=== PATIENT | male | born 1950 | race Caucasian/White ===

== ENCOUNTER 2019-04-11 07:00 | Outpatient (CLI) | payer OTHER, SELFPAY ==
[2019-04-11 12:40] LABS: Hemoglobin A1C 6.2 % (3.8-5.6)
[2019-04-11 12:59] LABS: Anion Gap 9.7 mmol/L (3-11); BUN 18 mg/dL (7-18); CO2 28.3 mmol/L (21.0-32.0); CREATININE 1.04 mg/dL (0.70-1.30); Calcium 9.2 mg/dL (8.5-10.1); Calculated LDL 77 mg/dL; Chloride 104 mmol/L (98-107); Cholesterol 172 mg/dL (<200); Glucose 134 mg/dL (74-106); HDL Cholesterol 52 mg/dL (40-60); Potassium 4.1 mmol/L (3.5-5.1); Sodium 142 mmol/L (136-145); Triglyceride 215 mg/dL (<150)
[2019-04-14 11:37] LABS: PSA, Screening 1.5 ng/mL (0.0-4.5)
== END 2019-04-11 07:20 ==
PROVIDERS: PCP Emergency Medicine; Visit Provider Emergency Medicine
DX: I10 Essential (primary) hypertension (principal); E11.9 Type 2 diabetes mellitus without complications; Z12.5 Encounter for screening for malignant neoplasm of prostate
CPT/HCPCS: 36415; 80048; 80061; 84153; 83036

== ENCOUNTER 2019-05-19 11:52 | Outpatient (CLI) | payer OTHER, SELFPAY ==
--- NOTE | 2019-05-19 09:52 | DI.RAD_ITS ---
EXAM: XR HIP LT COMPLETE AP PELVIS INDICATION: eval L hip pain and restricted motion. COMPARISON: No exams were available for comparison TECHNIQUE: 2D digital imaging was performed. FINDINGS: At the left hip joint, there is mild joint space narrowing, subchondral sclerosis, and periarticular spurring. The bones are intact. No dislocation is present. Dystrophic calcifications are seen in t he soft tissues. The sacroiliac joints and symphysis pubis are intact. IMPRESSION: Mild degenerative changes of the left hip.
== END 2019-05-19 12:12 ==
PROVIDERS: PCP Emergency Medicine; Visit Provider Student in an Organized Health Care Education/Training Program
DX: M25.552 Pain in left hip (principal); M25.652 Stiffness of left hip, not elsewhere classified; M16.12 Unilateral primary osteoarthritis, left hip
CPT/HCPCS: 73502

== ENCOUNTER → 2020-02-16 02:20 | Outpatient (CLI) | payer OTHER, MEDICARE, SELFPAY ==
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
== END ==
PROVIDERS: PCP Emergency Medicine; Visit Provider Nurse Practitioner Family
DX: S09.8XXA Other specified injuries of head, initial encounter (principal); M47.812 Spondylosis without myelopathy or radiculopathy, cervical region
CPT/HCPCS: 70450; 72125

== ENCOUNTER 2020-10-08 11:56 | Outpatient (REF) | payer OTHER, MEDICARE, SELFPAY ==
[2020-10-08 13:36] LABS: Anion Gap 10.8 mmol/L (3-11); BUN 16 mg/dL (7-18); CO2 27.2 mmol/L (21.0-32.0); CREATININE 1.1 mg/dL (0.70-1.30); Calcium 9.1 mg/dL (8.5-10.1); Calculated LDL 93 mg/dL (<100); Chloride 102 mmol/L (98-107); Cholesterol 186 mg/dL (<200); Glucose 162 mg/dL (74-106); HDL Cholesterol 60 mg/dL (40-60); Hemoglobin A1C 6.5 % (<5.7); Potassium 3.9 mmol/L (3.5-5.1); Sodium 140 mmol/L (136-145); Triglyceride 169 mg/dL (<150)
== END 2020-10-08 11:57 | disposition home or self-care (01) ==
LOC: LBN 11:56
PROVIDERS: PCP Emergency Medicine; Visit Provider Emergency Medicine
DX: I10 Essential (primary) hypertension (principal); E11.9 Type 2 diabetes mellitus without complications
CPT/HCPCS: 80048; 80061; 83036

== ENCOUNTER 2022-01-04 03:31 | Outpatient (CLI) | payer MEDICARE, SELFPAY ==
[2022-01-04 13:58] LABS: CREATININE 1.2 mg/dL (0.70-1.30); Estimated GFR 65.46 (mL/min/1.73m2); Potassium 3.9 mmol/L (3.5-5.1)
== END 2022-01-04 03:32 | disposition home or self-care (01) ==
LOC: LBO 03:31
PROVIDERS: PCP Nurse Practitioner Family; Visit Provider Nurse Practitioner Family
DX: I10 Essential (primary) hypertension (principal)
CPT/HCPCS: 36415; 82565; 84132

== ENCOUNTER → 2022-02-03 01:05 | Outpatient (CLI) | payer MEDICARE, SELFPAY ==
--- OUTSIDE RECORDS SUMMARY | 2022-02-03 01:07 | XMS_ITS | Encounter Summary ---
:1950 Author Organization [facility] [place] [address] Care Team Providers Name Role Phone Issac Donahue DO Primary Care Provider Encounter Details Date Type Department Care Team Description 12/30/2019 Telephone Dermatology at [facility] Deirdre Du MD [address] [place] [address] [facility] [phone] [place], [place] [address] (Wo rk) Social History Tobacco Use Types Packs/Day Years Used Date Never Smoker Smokeless Tobacco: Never Used Alcohol Use Standard Drinks/Week Comments No 0 (1 standard drink = 0.6 oz pure alcoho l) Sex Assigned at Date Recorded Not on file documented as of this encounter Plan of Treatment Upcoming Encounters Date Type Specialty Care Team Description 02/15/2022 Office Visit Dermatology Armaan Jones MD [facility] [address] G[facility] GARCIA-DERMAT [place], [place] [address] (Wo rk) documented as of this encounter Visit Diagnoses Not on filedocumented in this encounter Care Teams Service Department Manager Relationship Specialty Start Date End Date Issac Donahue DO PCP - General 02/06/[address] [place], [place] [id number] (work) documented as of this encounter
--- OUTSIDE RECORDS SUMMARY | 2022-02-03 01:07 | XMS_ITS | Encounter Summary ---
:1950 Author Organization [facility] [place] [address] Care Team Providers Name Role Phone GodfreyIssac villalobos Primary Care Provider Encounter Details Date Type Department Care Team Description 04/18/2018 Telephone Dermatology at [facility] Sarah Wesley MD [address] [facility] [place] [address] [facility] [phone] [place], [place] [address] (Wo rk) Social History Tobacco Use Types Packs/Day Years Used Date Never Smoker Smokeless Tobacco: Never Used Alcohol Use Standard Drinks/Week Comments No 0 (1 standard drink = 0.6 oz pure alcoho l) Sex Assigned at Date Recorded Not on file documented as of this encounter Miscellaneous Notes Telephone Encounter - Leila Hudson CCMA - 04/19/2018 3:32 PM EST Patient called back asking for further clarification of ED&C procedure. Reviewed procedure in detail. Answered his questions. Scheduled for ED&C on 04/22/[address] Du. Telephone Encounter - Sarah Wesley - 04/18/2018 6:11 PM EST Patient called to discuss recent biopsy results. Had been on the phone with Dr. Deirdre Du earlierin the day but lost secretary receptionist before finishing their discussion. 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 Discussed need for treatment and Dr. Du's recommendation for ED&C (per instructions left with Leila Hudson [facility]). All questions were answered. The patient agrees to treatment and would like to schedule ED&C as soon as possible. documented in this encounter Plan of Treatment Upcoming Encounters Date Type Specialty Care Team Description 02/15/2022 Office Visit Dermatology Armaan Jones MD [facility] ER DR GONZALEZ GARCIA-DERMAT [place], [place] [address] (Wo rk) documented as of this encounter Visit Diagnoses Not on filedocumented in this encounter Care Teams Online Advertising Analyst Relationship Specialty Start Date End Date Issac Donahue DO PCP - General 02/06/[address] [place] [address] documented as of this encounter
--- OUTSIDE RECORDS SUMMARY | 2022-02-03 01:07 | XMS_ITS | Encounter Summary ---
:1950 Author Organization [facility] [place] [address] Care Team Providers Name Role Phone Issac Donahue DO Primary Care Provider Reason for Visit Reason Onset Date Comments Referral 02/10/2014 Encounter Details Date Type Department Care Team Description 02/10/2014 Telephone [place] [facility] [place] [address] Social History Tobacco Use Types Packs/Day Years Used Date Never Smoker Smokeless Tobacco: Never Used Alcohol Use Standard Drinks/Week Comments No 0 (1 standard drink = 0.6 oz pure alcoho l) Sex Assigned at Date Recorded Not on file documented as of this encounter Miscellaneous Notes Telephone Encounter - Nata Olivia - 02/17/2014 7:39 AM EST Letter sent 02/17/14 Telephone Encounter - Nata Olivia - 02/13/2014 3:35 PM EDT LM to call back and set up referral. Telephone Encounter - Anita Lu - 02/10/2014 2:22 PM EDT .I left a message for patient to call about scheduling their referral. documented in this encounter Plan of Treatment Upcoming Encounters Date Type Specialty Care Team Description 02/15/2022 Office Visit Dermatology Armaan Jones MD [facility] ER [address] [facility] GARCIA[facility]DERMAT [place], [place] [address] (Wo rk) documented as of this encounter Visit Diagnoses Not on filedocumented in this encounter Care Teams Concrete Block Plant Supervisor Relationship Specialty Start Date End Date Issac Donahue DO PCP - General 02/06/[address] [place] [address] documented as of this encounter
--- OUTSIDE RECORDS SUMMARY | 2022-02-03 01:07 | XMS_ITS | Encounter Summary ---
:1950 Author Organization [facility] [place] [address] Care Team Providers Name Role Phone GodfreyIssac villalobos Primary Care Provider Encounter Details Date Type Department Care Team Description 02/27/2011 Orders Only Orthopaedics at [facility] Tam Hernadez, Hand pain (Primary [facility] MD [place]x) [place] [address] ORTHOPAEDIC SURGERY [place], [place] [address] Social History Tobacco Use Types Packs/Day Years Used Date Never Smoker Smokeless Tobacco: Never Used Alcohol Use Standard Drinks/Week Comments No 0 (1 standard drink = 0.6 oz pure alcoho l) Sex Assigned at Date Recorded Not on file documented as of this encounter Plan of Treatment Upcoming Encounters Date Type Specialty Care Team Description 02/15/2022 Office Visit Dermatology Armaan Jones MD [facility] ER DR [facility] [facility]ARCIA[facility]DERMAT [place], [place] [address] (Wo rk) documented as of this encounter Results XR hand diagnostic minimum 3 views (04/24/2011 8:43 AM EST) Anatomical Region Laterality Modality Hand N/A Radiographic Imaging Specimen (Source) Anatomical Collection Method Collection Time Re ceived Time Location / / Volume Laterality 04/24/2011 8:43 AM EST Narrative 04/24/2011 12:54 PM EST THREE VIEWS RIGHT HAND: HISTORY: ??Dupuytren's contracture right hand, fourth and fifth. FINDINGS: ??PIP narrowing in the fourth and fifth fingers. The DIPs are also slightly narrowed with hypertrophic cristobal ges. There is normal mineralization. The hand and wrist are normal. Procedure Note Jay Jaimes MD - 04/24/2011Formatt ing of this note might be different from the original. THREE VIEWS RIGHT HAND: HISTORY: Dupuytren's contracture right h and, fourth and fifth. FINDINGS: PIP narrowing in the fourth an d fifth fingers. The DIPs are also slightly narrowed with hypertrophic cristobal ges. There is normal mineralization. The hand and wrist are normal. Tam Hernadez MD IMG DX ORDERABLES documented in this encounter Visit Diagnoses Diagnosis Hand pain - Primary Pain in limb Hand pain Pain in limb documented in this encounter Care Teams Evaluation Engineer Relationship Specialty Start Date End Date Issac Donahue DO PCP - General 02/06/[address] [place] [address] documented as of this encounter
--- OUTSIDE RECORDS SUMMARY | 2022-02-03 01:07 | XMS_ITS | Encounter Summary ---
:1950 Author Organization [facility] [place] [address] Care Team Providers Name Role Phone Issac Donahue DO Primary Care Provider Reason for Visit Reason Comments Skin Lesion Consultation (CALLIE) - Closed Specialty Diagnoses / Procedures Referred By Contact Refer red To Contact Dermatology Diagnoses ear lesion ? invasive Issac Donahue DO [facility] [address] [place], [place] [address] [place] [address] Fax: Referral ID Status Reason Start Date Expiration Date Visits V isits Requested Authorized [id number] Closed Consult, 09/28/2015 09/27/2016 1 1 [facility] Encounter Details Date Type Department Care Team Description 10/14/2015 Office Visit Dermatology at [facility] Darryn Lange (actinic Road MD Gaurav keratosis) [address] [place] [address] [facility] [place], [place] [address] Social History Tobacco Use Types Packs/Day Years Used Date Never Smoker Smokeless Tobacco: Never Used Alcohol Use Standard Drinks/Week Comments No 0 (1 standard drink = 0.6 oz pure alcoho l) Sex Assigned at Date Recorded Not on file documented as of this encounter Progress Notes Darryn Lange MD - 10/14/2015 10:05 AM EDT DERMATOLOGY NEW PATIENT CLINIC NOTE Date of service: 10/14/2015 Name: Aisa Villarreal Jr. Age: 65 y.o. Sex: male : 1950 Provider: Darryn Lange MD New patient to myself and to clinic. Seen in consultation at the request of Issac Donahue DO - PCP for evaluation and management of the below problem. HPI Asia Villarreal Jr. is a 65 y.o. year old male, here today for a concerning lesion on the right antihelix, present for about a year. Asymptomatic, no bleeding on its own, no tenderness/pain, no itch. HxAKs, but no hx skin cancer. No personal or FH dysplastic nevi or melanoma. Leaving in 10 days for multi-state motorcycle tour over the following 4-6 weeks. SKIN HX: Per patient: Multiple lesions frozen - possible AKs. FAMILY SKIN HISTORY: Family history of any skin cancers. - Sister - BCC No known family history of any skin conditions. SOCIAL HX; Occupation: Construction ADR: Allergies Allergen Reactions ??? Amoxicillin Trihydrate Nausea And Vomiting MEDS: Current Outpatient Prescriptions Medication Sig Dispense Refill ??? aspirin 81 mg EC tablet Take 81 mg by mouth daily. ??? nitroGLYcerin (NITROSTAT) 0.[address] 0.4 mg under the tongue every 5 minutes as needed. ??? amlodipine (NORVASC) 10 mg tablet Take 10 mg by mouth daily. ??? atenolol (TENORMIN) 100 mg tablet Take 100 mg by mouth 2 times daily. ??? losartan-hydrochlorothiazide (HYZAAR) 100-25 mg per tablet 1 Tablet(s), PO, Once daily ??? multivitamin (THERAGRAN) tablet ??? magnesium chloride (MAG DELAY) 64 mg CR tablet ??? atorvastatin (LIPITOR) 40 mg tablet No current facility-administered medications for this visit. ROS General: feeling well Skin: denies other skin complaints EXAM General: NAD, pleasant, cooperative Skin: A focused skin exam was performed of the right ear. Significant skin findings: A. AK on right antihelix (lesion of concern) ASSESSMENT/PLAN: A. Actinic keratosis - Discussed LN2 treatment. Will plan to treat when patient returns from vacation, rather than risk irritation from helmet. FOLLOW-UP: appointment scheduled for November upon leaving Note initiated by VANESA Martinez has performed the documentation for this encounter in the presence of and acting as a scribe for Dr. Lange. I performed the above scribed service and agree with the accuracy of thedocumentation in this encounter. Darryn Lange MD Section of Dermatology [facility] documented in this encounter Plan of Treatment Upcoming Encounters Date Type Specialty Care Team Description 02/15/2022 Office Visit Dermatology Armaan Jones MD [facility] [address]DER[address] [place], [place] [address] (Wo rk) documented as of this encounter Visit Diagnoses Diagnosis AK (actinic keratosis) Actinic keratosis documented in this encounter Care Teams Executive Legal Secretary Relationship Specialty Start Date End Date Issac Donahue DO PCP - General 02/06/[address] [place] [address] documented as of this encounter
--- OUTSIDE RECORDS SUMMARY | 2022-02-03 01:07 | XMS_ITS | Encounter Summary ---
:1950 [place] [address] Care Team Providers Name Role Phone GodfreyIssac villalobos Primary Care Provider Reason for Visit Reason Comments Skin Lesion Encounter Details Date Type Department Care Team Description 02/07/2021 Office Visit D[facility] at [facility] Edward Du MD Actinic keratoses [facility] [address] [place] [address] [facility] [phone] RD-DERMATOLOGY [place], [place] [address] (Wo rk) Social History Tobacco Use Types Packs/Day Years Used Date Never Smoker Smokeless Tobacco: Never Used Alcohol Use Standard Drinks/Week Comments No 0 (1 standard drink = 0.6 oz pure alcoho l) Sex Assigned at Date Recorded Not on file documented as of this encounter Patient Instructions Patient InstructionsLeila Hudson CCMA - 02/07/2021 10:15 AM EDT Actinic Keratoses Diagnosis: You have been diagnosed today with an actinic keratosis. These dry, scaly patches are considered theearliest stage in the development of skin cancer. A significant percentage of actinic keratoses develop into squamous cell carcinoma skin cancer; estimates range from 10-20% over a 10-year period. Because of this risk, actinic keratoses are usually treated. Treatment: You were treated today with liquid nitrogen. This is the most common treatment for actinic keratoses. Liquid nitrogen is extremely cold and freezes the surface of the skin, causing the lesion to flake off. This treatment can be uncomfortable but discomfort should subside after a couple of hours. The area treated will look red and irritated, and it may blister up or turn dark, then fall off. This is normal. Wound care: You do not need any special treatment for the area, but you may find cold compresses and/or a light application of Vaseline soothing. For best results, do not rub or pick at the healing lesion. Expected healing time is 3-4 weeks. Please contact the clinic if the lesion has not fully resolved after 6 weeks. Prevention: Long-term exposure to the sun is the single most significant cause of actinic keratoses, so the bestdefense against them is a comprehensive sun protection program. This includes wearing protective clothing and a wide-brimmed hat, avoiding the sun at midday when ultraviolet rays are strongest, stayingin the shade as much as possible, and wearing a broad-spectrum sunscreen with a sun protection factor (SPF) of at least 30. Contact information: On weekdays (8 am to 5 pm), please call the clinic at [phone]. After 5 pm, and on weekends and holidays, please call the hospital at [phone] and ask for the Drapery Rod Assembler Motor Adjuster. documented in this encounter Progress Notes Deirdre Du MD - 02/07/2021 10:15 AM EDT Images from the original note were not included. DEPARTMENT OF DERMATOLOGY Medical Dermatology Clinic Provider: DEIRDRE DU MD Patient's preferred name Asia Preferred contact method for results [x]Phone []myD-H []Letter Detailed phone message OK? Yes Are there any other people with whom we may discuss your care? (Ashly) Past Medical History Date, location, treatment Melanoma No Dysplastic nevi No SCC 04/17/18: Right posterior arm, SCCis (ED&C 04/22/18) BCC No AKs LN2 Other relevant past medical history Family History Details Melanoma No NMSC Sister - BCC Other relevant family history No Social History Occupation: Construction - builds [employer] Hobbies: Enjoys riding motorcycles Pre-Procedure Questions Details Allergy to lidocaine, epinephrine, Dermabond, chlorhexidine, or adhesives No Bleeding disorder or blood thinners Yes: ASA 81 mg Pacemaker, defibrillator, deep brain stimulator, cochlear implant No History of Present Illness: Asia Villarreal Jr. is a 70 y.o. established patient who returns to the clinic today for evaluation of various lesions. - Rough lesions on the hands, forearms, left orthodox, and scalp. Last visit at [facility] Derm: 02/23/2020 Last visit with this provider: 02/23/2020 Medications: Reviewed in eD-H Allergies: Reviewed in eD-H Skin Examination: Focused skin examination of the scalp, upper face, forearms, and hands was normal with the exceptionof the findings below. Assessment/Plan A. Actinic Keratoses - Ill-defined, gritty papules on the scalp x 1, left eyebrow x 1, left forearm x 1, left dorsal hand x 3, right dorsal hand x 1. - Explained premalignant potential of these lesions. - Discussed treatment with cryotherapy. Patient elects to proceed with cryotherapy today. - Instructed patient to return to clinic for re-evaluation if lesions does not resolve as expected with this treatment. Procedure: Destruction of lesions with cryotherapy (LN2). Locations: As noted above. Number: 7 Discussed procedure and expectations, including risks and benefits. Verbal consent obtained. Treatedwith LN2. There were no complications; Patient tolerated the procedure well. Post-procedure expectations and wound care reviewed. Other: ??? N/A RTC: PRN (patient has skin exams by PCP) Scribe attestation: Hafsa Hackett and [facility] Hudson [facility] have performed the documentation for this encounter in the presence of and acting as a scribe for DEIRDRE DU MD. I performed the above scribed service and agree with the accuracy of the documentation in this encounter. Reviewed and signed by: DEIRDRE DU MD Dermatology [facility] documented in this encounter Plan of Treatment Upcoming Encounters Date Type Specialty Care Team Description 02/15/2022 Office Visit Dermatology Armaan Jones MD [facility] [address] [facility] G[facility]-DERMAT [place], [place] [address] (Wo rk) documented as of this encounter Visit Diagnoses Diagnosis Actinic keratoses Actinic keratosis documented in this encounter Care Teams Field Recorder Relationship Specialty Start Date End Date Issac Donahue DO PCP - General 02/06/[address] [place] [address] documented as of this encounter
--- OUTSIDE RECORDS SUMMARY | 2022-02-03 01:07 | XMS_ITS | Clinical Summary ---
:1950 Author Organization [facility] [place] [address] Care Team Providers Name Role Phone Issac Donahue DO Primary Care Provider Allergies Active Allergy Reactions Severity Noted Date Comments Amoxicillin Trihydrate Nausea And Vomiting Medications Medication Sig Dispensed Refills Start Date End Date Status losartan-hydrochlorothi 1 Tablet(s), PO, 0 0 Active azide (HYZAAR) 100-25 Once daily mg per tablet multivitamin 0 09/30/2009 Active (THERAGRAN) tablet magnesium chloride (MAG 0 09/30/2009 Active DELAY) 64 mg CR tablet atorvastatin (LIPITOR) 0 09/30/2009 Active 40 mg tablet aspirin 81 mg EC tablet Take 81 mg by 0 Active mouth daily. nitroGLYcerin Place 0.4 mg 0 Act nilda (NITROSTAT) 0.4 mg SL under the tongue tablet every 5 minutes as needed. amlodipine (NORVASC) 10 Take 10 mg by 0 Active mg tablet mouth daily. atenolol (TENORMIN) 100 Take 100 mg by 0 Active mg tablet mouth 2 times daily. clonazePAM (KLONOPIN) Take 0.5 mg by 0 Active 0.5 mg Tablet mouth 2 times daily as needed for Anxiety. ibuprofen Take 800 mg by 0 Activ e (ADVIL;MOTRIN) 800 mg mouth 2 times Tablet daily. omeprazole (PRILOSEC) Take 40 mg by 0 Active 40 mg Capsule, Delayed mouth daily. Release(E.C.) Active Problems Problem Noted Date S/P TKR (total knee replacement) using ATB cement/Stab . Rot. Platform 02/05/2011 07/09/07 Overview: TOTAL KNEE ARTHROPLASTY /RIGHT/ANTIBIOTI C CEMENT/STAB.ROTATING PLATFORM DM (diabetes mellitus) 02/05/2011 HTN (hypertension) 02/05/2011 Immunizations Name Administration Dates Next Due Influenza Vaccine, Whole 03/20/2008 Influenza, Trivalent, Adjuvanted 02/05/2019 Td, adult 06/18/2003 Social History Tobacco Use Types Packs/Day Years Used Date Never Smoker Smokeless Tobacco: Never Used Alcohol Use Standard Drinks/Week Comments No 0 (1 standard drink = 0.6 oz pure alcoho l) Sex Assigned at Date Recorded Not on file Last Filed Vital Signs Vital Sign Reading Time Taken Comments Blood Pressure 144/77 04/24/2011 9:45 AM EST Pulse 61 04/24/2011 9:45 AM EST Temperature - - Respiratory Rate - - Oxygen Saturation - - Inhaled Oxygen Concentration - - Weight 103 kg (227 lb) 04/24/2011 9:41 AM EST Height 172.7 cm (5' 8) 04/24/2011 9:41 AM EST Body Mass Index 34.52 04/24/2011 9:41 AM EST Plan of Treatment Upcoming Encounters Date Type Specialty Care Team Description 02/15/2022 Office Visit Dermatology Armaan Jones MD [facility] [address] [facility] G[facility]DER[facility] [place], [place] [address] (Wo rk) Health Maintenance Due Date Last Done Comments Covid-19 Vaccine (#1) 1950 Pneumoccocal Vaccine: 65+ (1 - PCV) 1958 DM Creatinine yearly 1962 DM Hemoglobin A1c 1962 DM Opthalmology Exam 1962 DM Urine Microalbumin yearly 1962 Hepatitis C Screening 1970 Tdap adult 1971 Colonoscopy 1997 Zoster vaccine (1 of 2) 2002 Tetanus vaccine 06/17/2013 06/18/2003 Influenza (Flu) vaccine (1 of 1 - 12/15/2021 02/05/2019, Influenza standard series) Insurance Payer Benefit Plan / Subscriber ID Effective Dates Phone Addre ss Type Group CIGNA CIGNA PPO IND [id number] 2002-Present [phone] [address] [place] [id number] MEDICARE MEDICARE PART A [id number] 2019-Present [phone] [facility] [place] [id number] [phone] (Work) Advance Directives Documents on File Type Date Recorded Patient Bond Runner Explanati on Advance Directives and Living 11/16/2015 9:53 AM 7 .12.16 Will Care Teams Offshore Wind Operations Manager Relationship Specialty Start Date End Date Issac Donahue DO PCP - General 02/06/[address] [place] [address]
--- OUTSIDE RECORDS SUMMARY | 2022-02-03 01:07 | XMS_ITS | Encounter Summary ---
:1950 Author Organization [facility] [place] [address] Care Team Providers Name Role Phone Issac Donahue DO Primary Care Provider Reason for Referral Consultation (Routine) - Closed Specialty Diagnoses / Procedures Referred By Contact Refer red To Contact Neurology Diagnoses Hand numbness Nata Ratliff MD [facility] [place] [facility] 3c [facility] D [facility] [place] [address] [place] [address] Referral ID Status Reason Start Date Expiration Date Visits V isits Requested Authorized [id number] Closed Consult & 04/24/2011 10/21/2011 1 1 Test Reason for Visit Reason Comments Other NUMBNESS IN RT HAND. DUPUYTR EN'S CONTRACTURES RT HAND, FINGERS 4&5. Encounter Details Date Type Department Care Team Description 04/24/2011 Office Visit [place]ed[facility] [place] [facility] [place] Nikky Hernadez, Hand numbness [facility] (Primary Dx) [place] [address] [phone] ORTHOPAEDIC SURGERY [place], [place] [address] Social History Tobacco Use Types Packs/Day Years Used Date Never Smoker Smokeless Tobacco: Never Used Alcohol Use Standard Drinks/Week Comments No 0 (1 standard drink = 0.6 oz pure alcoho l) Sex Assigned at Date Recorded Not on file documented as of this encounter Last Filed Vital Signs Vital Sign Reading [...] Mass Index 34.52 04/24/2011 9:41 AM EST documented in this encounter Patient Instructions Patient InstructionsNata Ratliff MD - 04/24/2011 10:40 AM EST Electrodiagnostic studies with neurology Follow-up with Dr. Hernadez after studies completed documented in this encounter Progress Notes Nikky Hernadez MD - 05/01/2011 12:51 PM EST Addended by: NIKKY HERNADEZ on: 05/01/2011 Modules accepted: Level of Service Nata Ratliff MD - 04/24/2011 10:49 AM EST ATTENDING: Nikky Hernadez M.D. DATE: 04/24/2011 CHIEF COMPLAINT: Right hand numbness. HISTORY OF PRESENT ILLNESS: Mr. Villarreal is a 60-year-old man who presents today in clinic for evaluation of right hand numbness. This problem has been of greater than two years' duration. The patient was referred by Dr. Donahue and by Dr. Swain. The patient is a construction site manager. He spends a lot of time riding snowmobiles and a motorcycle. He is right handed. He experiences numbness in his right hand especially in the third, fourth, and fifth fingers, also extending to the second finger. This occurs after he has been gripping the handle of his motorcycle or snowmobile for an extended period of time. The numbness extends to the metacarpophalangeal joint. When this occurs, the patient stops and shakes his arm and the symptoms resolve. He did previously notice some symptoms at night, but has modified his sleeping position and this has resolved. He also notices symptoms if he is using a hammer repetitively throughout a workday. He has occasional similar symptoms on the left side. The patient reports a prior injury to his left hand at age of [age] years old and recalls no major injury of his right upper extremity. He did injure his elbow on the right upper extremity at one time when ice fishing and this occurrence was not in proximity to development of symptoms. The patient also reports nodules on his palm causing some limitation of motion of the metacarpophalangeal Joint; this is in the third and fourth digits. The patient has no other complaints and receives regular medical care. Medications list has been updated in [facility]. THE PATIENT REPORTS NO DRUG ALLERGIES. PAST MEDICAL HISTORY: High blood pressure approximately 30 years, high cholesterol approximately 30 years, and acid reflux for one year. PRIOR SURGERIES: Total knee replacement 07/09/2007. SOCIAL FACTORS: The patient is a nonsmoker, has never smoked. Drinks alcohol rarely. Is physically active in construction work and deer hunting. Education level is some college. FAMILY MEDICAL HISTORY: Diabetes, mother and sister. Cancer, mother. Heart problems; father, uncle, and sister. Arthritis, sister and father. High blood pressure, sister. No family history of Dupuytren's type lesions. PHYSICAL EXAMINATION: General: The patient is alert, appropriate, and in no apparent distress. Right Upper Extremity: Motor function intact to extensor pollicis longus, flexor pollicis longus, intrinsics, wrist flexion and extension, and geospatial extractor analysis. There is no weakness. There is moderate limitation of motion of wrist flexion and extension. There is 10 degrees limitation of extension of the metacarpophalangeal joint and digits three and four. Light touch sensation is intact in median, ulnar, and radial distributions. Froment sign is negative bilaterally. Wartenberg sign is negative bilaterally. Tinel's test of the elbow is negative on the right. Phalen's test negative bilaterally. There are Dupuytren's lesions on the palmar aspect associated with third and fourth digits. RADIOGRAPHS: Full series of the hand document some arthritis of the trapeziometacarpal joint. ASSESSMENT: A 60-year-old right-handed man with symptoms compatible with compression of the right ulnar nerve. PLAN: The patient has been scheduled for electrodiagnostic studies; to return in clinic for discussion following electrodiagnostics. Cc. ISSAC DONAHUE DO I examined Asia Villarreal Jr. and I agree with Dr. Ratliff's note. NIKKY HERNADEZ MD documented in this encounter Miscellaneous Notes Miscellaneous - Steve, Synthetic Cloth Binding Cutter - 05/01/2011 5:45 PM EST documented in this encounter Plan of Treatment Upcoming Encounters Date Type Specialty Care Team Description 02/15/2022 Office Visit Dermatology Armaan Jones MD [facility] DR GONZALE[address] GARCIA[address]DER[address] [place], [place] [address] (Wo rk) Scheduled Referrals Name Type Priority Associated Diagnoses Order S chedule REFERRAL TO Outpatient Referral Routine Hand numbness Ordered : NEUROLOGY 04/24/2011 documented as of this encounter Visit Diagnoses Diagnosis Hand numbness - Primary Disturbance of skin sensation documented in this encounter Care Teams Entry Analyst Relationship Specialty Start Date End Date Issac Donahue DO PCP - General 02/06/[address] [place] [address] documented as of this encounter
--- OUTSIDE RECORDS SUMMARY | 2022-02-03 01:07 | XMS_ITS | Encounter Summary ---
:1950 Author Organization [facility] [place] [address] Care Team Providers Name Role Phone Godfrey Issac FOX Primary Care Provider Reason for Visit Reason Comments Procedure ED&C Skin Lesion Encounter Details Date Type Department Care Team Description 04/22/2018 [facility] Deirdre Schmidt, Sq uamous cell carcinoma; Jude TAYLOR AK (actinic keratosis) [address] [place] [address] [facility]-DERMATOLOGY [place], [place] [address] Social History Tobacco Use Types Packs/Day Years Used Date Never Smoker Smokeless Tobacco: Never Used Alcohol Use Standard Drinks/Week Comments No 0 (1 standard drink = 0.6 oz pure alcoho l) Sex Assigned at Date Recorded Not on file documented as of this encounter Patient Instructions Patient InstructionsLizzie Teresa M - 04/22/2018 8:15 AM EST Treatment and Wound Care Instructions Your treatment today: You have had an Electrodessication and Curretage (ED&C) of your skin, which is a method to destroy skin cancer. This wound will heal without stitches. Allow 3-6 weeks for the wound to fully heal. If bleeding occurs, hold firm pressure against the wound for 15 minutes. If bleeding continues, callthe clinic or go to your local emergency room. Wound care instructions: You will need to keep the bandage placed over the wound dry and intact for 24 hours. Afterwards, perform the following wound care daily: ?? Wash your hands before changing the bandage. ?? Remove the bandage and clean the area with mild soap and water, then gently pat the area dry. ?? Apply a small amount of Vaseline to the area, then cover the wound with a Band-Aid. Change your bandage daily until the wound is fully healed. ?? A small amount of yellow drainage is part of normal healing. The area might appear as a small depression with redness around the edge of the wound. This is normal. ?? Please contact the clinic if you notice any of the following signs of infection: increased tenderness, pain, drainage, or redness that becomes hot or hard around the wound. If you have further questions or concerns, please call the office at [phone]. If it is after 5PM, or a holiday or weekend, please call [phone] and ask for the Sociology Faculty Member Motors And Controls Tester. documented in this encounter Progress Notes Deirdre Du MD - 04/22/2018 8:15 AM EST DERMATOLOGY ESTABLISHED PATIENT CLINIC NOTE Date of service: 04/22/2018 Asia Villarreal Jr. : 1950 Provider: Deirdre Du MD Chief Complaint Patient presents with ??? Procedure ED&C ??? Skin Lesion SKIN HISTORY: 04/17/18: right posterior arm- SCCis Per patient: Multiple lesions frozen - possible AKs. ?? FAMILY SKIN HISTORY: - Sister - BCC ?? SOCIAL ??HISTORY: Occupation: Construction; builds [employer] HPI Asia Villarreal Jr. is a 67 y.o. year old male established patient last seen by me on 04/17/18. 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 Patient also concerned today about spot on the left lateral neck and left rastafari. ADR: Allergies Allergen Reactions ??? Amoxicillin Trihydrate Nausea And Vomiting MEDS: Current Outpatient Medications Medication Sig Dispense Refill ??? clonazePAM (KLONOPIN) 0.5 mg Tablet Take 0.5 mg by mouth 2 times daily as needed for Anxiety. ??? ibuprofen (ADVIL;MOTRIN) 800 mg Tablet Take 800 mg by mouth 2 times daily. ??? omeprazole (PRILOSEC) 40 mg Capsule, Delayed Release(E.C.) Take 40 mg by mouth daily. ??? aspirin 81 mg EC tablet Take [...] General: NAD, pleasant, cooperative Skin: A focused examination was performed to the right posterior arm, left neck, and left rastafari. Significant skin findings: A. Right posterior arm: 1.5cm well-demarcated, bright red, plaque with slight scale B. Left rastafari x 1, left lateral neck: 0.2-0.3cm scaly irregular pink papules [Total: 2] ASSESSMENT/PLAN: A. Biopsy-Proven SCCis - Reviewed pathology and ED&C procedure with patient. - [place] decision to proceed with ED&C treatment today. - Reviewed procedure screening questions listed above. Procedure: Destruction of lesion by electrodessication and curettage. Site: As noted above. Discussed indications and expectations including risks and benefits. Verbal consent obtained. Skin prepped. Local anesthesia with 1% xylocaine, 1/100,000 epinephrine. The entire lesion plus a small margin was treated. Post-curettage defect size: 1.8 cm. No complications. Wound dressed. Expectations (including discomfort management) and wound care reviewed. B. Actinic Keratosis -Discussed at length the natural history and etiology of actinic keratoses. -Discussed premalignant potential of these lesions. -Discussed treatment options for actinic keratoses including cryotherapy versus chemical treatment such as 5-FU or PDT. -Combined decision to treat actinic keratosis with LN2 in office today. Procedure Note: Procedure: Destruction of lesion(s) with cryotherapy. Number: 2 Location: as above Discussed procedure and expectations including risks (including risk of hypopigmentation) and benefits. Verbal consent obtained. Frozen with LN2, 15-30 second thaw time, TWICE. There were no complications; the patient tolerated the procedure well. Post-procedure expectations and wound care were reviewed. FOLLOW UP: RTC at convenience for follow-up and full skin exam, or sooner if needed. Patient will call to schedule. Reminder placed in the system to schedule. Patient instructed to call with any questions or concerns. I am documenting this encounter acting as the scribe for and in the presence of Dr. Du.: Teresa Samuel I performed the above scribed service and agree with the accuracy of the documentation in this encounter. Deirdre Du MD Section of Dermatology [facility] documented in this encounter Plan of Treatment Upcoming Encounters Date Type Specialty Care Team Description 02/15/2022 Office Visit Dermatology Armaan Jones MD [facility] [address] [place], [place] [address] (Wo rk) documented as of this encounter Visit Diagnoses Diagnosis Squamous cell carcinoma Other malignant neoplasm without specifi cation of site AK (actinic keratosis) Actinic keratosis documented in this encounter Care Teams Kids Club Attendant Relationship Specialty Start Date End Date Issac Donahue DO PCP - General 02/06/[address] [place] [address] documented as of this encounter
--- OUTSIDE RECORDS SUMMARY | 2022-02-03 01:07 | XMS_ITS | Encounter Summary ---
:1950 Author Organization [place] [address] Care Team Providers Name Role Phone Jesu Sue MD Primary Care Provider Encounter Details Date Type Department Care Team Description 10/28/2010 Orders Only Orthopaedics at [facility] [place] Gaston Swain, S/P TKR (total knee [facility] MD replacement) (Primary [facility] Dx) [place] [address] ORTHOPAEDIC SURGERY [place], [place] [address] Social History Tobacco Use Types Packs/Day Years Used Date Never Assessed Sex Assigned at Date Recorded Not on file documented as of this encounter Plan of Treatment Upcoming Encounters Date Type Specialty Care Team Description 02/15/2022 Office Visit Dermatology Armaan Jones MD [facility] ER DR [address] [place], [place] [address] (Wo rk) documented as of this encounter Results XR knee diagnostic 1 or 2 view (02/06/2011 7:23 AM EDT) Anatomical Region Laterality Modality Knee N/A Radiographic Imaging Specimen (Source) Anatomical Collection Method Collection Time Re ceived Time Location / / Volume Laterality 02/06/2011 7:23 AM EDT Impressions 02/06/2011 2:36 PM EDT IMPRESSION: Unchanged appearance and alignment of th e right total knee arthroplasty. Narrative 02/06/2011 2:36 PM EDT STANDING AP IMAGE OF BOTH KNEES AND LATE RAL VIEW OF THE RIGHT KNEE: COMPARISON STUDY: ??09/2009 and August 2007 . HISTORY: ??Arthroplasty followup. ?? FINDINGS: ??Right total knee arthroplast y without change in appearance and alignment, and no radiolucencies or alice prosthetic fracture. No effusion. Osteoarthritis of the left knee is simil ar to 2007 with diffuse joint space narrowing and osteophyte formation. Procedure Note Emelia Vallejo MD - 02/06/2011Formatt ing of this note might be different from the original. STANDING AP IMAGE OF BOTH KNEES AND LATE RAL VIEW OF THE RIGHT KNEE: COMPARISON STUDY: 09/2009 and August 2007. HISTORY: Arthroplasty followup. FINDINGS: Right total knee arthroplasty without change in appearance and alignment, and no radiolucencies or alice prosthetic fracture. No effusion. Osteoarthritis of the left knee is simil ar to 2008 with diffuse joint space narrowing and osteophyte formation. IMPRESSION IMPRESSION: Unchanged appearance and alignment of th e right total knee arthroplasty. Gaston Swain MD IMG DX ORDERABLES documented in this encounter Visit Diagnoses Diagnosis S/P TKR (total knee replacement) - Prima ry Knee joint replacement by other means S/P TKR (total knee replacement) Knee joint replacement by other means documented in this encounter Care Teams Teacher Learning Disabled Relationship Specialty Start Date End Date Jesu Sue MD PCP - General 03/08/10 02/05/[address] [address] documented as of this encounter
--- OUTSIDE RECORDS SUMMARY | 2022-02-03 01:07 | XMS_ITS | Encounter Summary ---
:1950 Author Organization [facility] [place] [address] Care Team Providers Name Role Phone Issac Donahue DO Primary Care Provider Encounter Details Date Type Department Care Team Description 04/24/2011 Hospital En[place] [facility] [address] [place] [address] [place] [address] Social History Tobacco Use Types Packs/Day Years Used Date Never Smoker Smokeless Tobacco: Never Used Alcohol Use Standard Drinks/Week Comments No 0 (1 standard drink = 0.6 oz pure alcoho l) Sex Assigned at Date Recorded Not on file documented as of this encounter Medications at Time of Discharge Medication Sig Dispensed Refills Start Date End Date aspirin 81 mg EC tablet Take 81 mg by mouth 0 daily. nitroGLYcerin (NITROSTAT) Place 0.4 mg under 0 0.4 mg SL tablet the tongue every 5 minutes as needed. amlodipine (NORVASC) 10 mg Take 10 mg by mouth 0 tablet daily. atenolol (TENORMIN) 100 mg Take 100 mg by mouth 0 tablet 2 times daily. losartan-hydrochlorothiazid 1 Tablet(s), PO, 0 e (HYZAAR) 100-25 mg per Once daily tablet multivitamin (THERAGRAN) 0 09/30/2009 tablet magnesium chloride (MAG 0 09/30/2009 DELAY) 64 mg CR tablet atorvastatin (LIPITOR) 40 0 09/30/2009 mg tablet documented as of this encounter Plan of Treatment Upcoming Encounters Date Type Specialty Care Team Description 02/15/2022 Office Visit Dermatology Armaan Jones MD [facility] [address] [place] [address] (Wo rk) documented as of this encounter Procedures Procedure Name Priority Date/Time Associated Comments Diagnosis XR HAND DIAGNOSTIC Routine 04/24/2011 8:43 AM Hand pain Res ults for this MINIMUM 3 VIEWS EST procedure ar e in the results section. documented in this encounter Results XR hand diagnostic minimum [...] this encounter Visit Diagnoses Diagnosis Hand pain Pain in limb documented in this encounter Care Teams Shell Core And Molding Supervisor Relationship Specialty Start Date End Date Issac Donahue DO PCP - General 02/06/[address] [place] [address] documented as of this encounter
--- OUTSIDE RECORDS SUMMARY | 2022-02-03 01:07 | XMS_ITS | Encounter Summary ---
:1950 Author Organization [facility] [place] [address] Care Team Providers Name Role Phone Godfrey Issac FOX Primary Care Provider Reason for Visit Reason Comments Skin Check Focused Exam Encounter Details Date Type Department Care Team Description 01/23/2019 Office Visit Dermatology at [facility] Deirdre Du, AK (actinic keratosis); Jude TAYLOR History of squamous cell carcinoma in si (SCCIS) [address] [place] [address] [facility]-DERMATOLOGY [place], [place] [address] Social History Tobacco Use Types Packs/Day Years Used Date Never Smoker Smokeless Tobacco: Never Used Alcohol Use Standard Drinks/Week Comments No 0 (1 standard drink = 0.6 oz pure alcoho l) Sex Assigned at Date Recorded Not on file documented as of this encounter Patient Instructions Patient InstructionsPalmira Pitt LPN - 01/23/2019 7:00 AM EDT Actinic Keratoses You have been diagnosed today with Actinic Keratosis (AK). These dry, scaly patches are considered the earliest stage in the development of skin cancer. In rare cases, an AK can progress to skin cancer. Because of this risk, AKs are usually treated. You were treated today with Liquid Nitrogen. This is the most common treatment for AKs. Liquid nitrogen is extremely cold, and freezes the surface of the skin, causing the lesion to flake off. Treatment with liquid nitrogen can be uncomfortable, but discomfort should subside after a couple of hours. The area treated will look red and irritated, and it may blister up or turn dark, then fall off. This is normal! You do not need any special treatment for the area, but you may find cold compresses and/or a light application of Vaseline soothing. For best results, do not rub or pick at the healing lesion. Expected healing time is 3-4 weeks. Please contact the Dermatology clinic at [phone] if the lesion has not fully resolved after 6 weeks. documented in this encounter Progress Notes Deirdre Du MD - 01/23/2019 7:00 AM EDT DERMATOLOGY ESTABLISHED PATIENT CLINIC NOTE Date of service: 01/23/2019 Asia Villarreal Jr. : 1950 Provider: Deirdre Du MD Chief Complaint Patient presents with ??? Skin Check Focused Exam SKIN HISTORY: 04/17/18: right posterior arm- SCCis - ED&C'd 04/22/18 ?? Per patient: Multiple lesions frozen - possible AKs. ?? FAMILY SKIN HISTORY: - Sister - BCC ?? SOCIAL ??HISTORY: Occupation: Construction; builds [employer] PATIENT PREFERENCES Preferred name: Asia Preferred contact method with results: Cell Phone Detailed message including biopsy results okay?: Yes Are there any other people with whom we may discuss your care?: No HPI Asia Villarreal Jr. is a 68 y.o. year old male. Established patient, last seen by me on 04/22/18. Here today for a focused exam. Patient reports a scaly spot on his left lateral neck, present for the past 6 months. He denies any associated itching, bleeding or pain. He reports similar gritty lesions onthe right lateral neck. ADR: Allergies Allergen Reactions ??? Amoxicillin Trihydrate [...] NAD, pleasant, cooperative Skin: A focused skin examination of the scalp, face, neck, and right posterior arm significant for??the following: Significant skin findings: A. Left lateral neck x 2, right lateral neck x 2, left posterior hairline at the neck x 1: 0.2-0.3cmscaly irregular pink papules [Total: 5] B. Right posterior arm: Well-healed hypopigmented scar per skin history. ASSESSMENT/PLAN: A. Actinic Keratoses - Explained etiology, natural history and premalignent potential of these lesions. - Discussed treatment with cryotherapy, including the risks and benefits. - Patient elects to proceed with cryotherapy today. - Discussed importance of sun protection, sun avoidance strategies, protective clothing, and sunscreen. Procedure: Destruction of lesion(s) with cryotherapy (LN2). Location(s): As noted above. Number: 5 Discussed procedure and expectations, including risks (especially hypopigmentation) and benefits. Verbal consent obtained. Frozen with LN2, 15-30 second thaw time, twice. There were no complications; patient tolerated the procedure well. Post-procedure expectations and wound care reviewed. - Instructed patient to return to clinic for re-evaluation if lesion(s) does not resolve with this treatment. B. H/O SCCis - NER, will continue to monitor FOLLOW-UP: Patient declined follow-up for full skin exam and is monitored by PCP. for follow-up and full skin exam, or sooner if needed. Patient instructed to call with any questions or concerns. I am documenting this encounter acting as the scribe for and in the presence of Dr. Du.: PALMIRA PITT LPN and Teresa Samuel I performed the above scribed service and agree with the accuracy of the documentation in this encounter. Deirdre Du MD Section of Dermatology [facility] documented in this encounter Plan of Treatment Upcoming Encounters Date Type Specialty Care Team Description 02/15/2022 Office Visit Dermatology Armaan Jones MD [facility] ER [address] [place], [place] [address] (Wo rk) documented as of this encounter Visit Diagnoses Diagnosis AK (actinic keratosis) Actinic keratosis History of squamous cell carcinoma in si tu (SCCIS) documented in this encounter Care Teams Shop And Alteration Tailor Relationship Specialty Start Date End Date Issac Donahue DO PCP - General 02/06/[address] [place] [address] documented as of this encounter
--- OUTSIDE RECORDS SUMMARY | 2022-02-03 01:07 | XMS_ITS | Encounter Summary ---
:1950 Author Organization [facility] Address [address] [place] [address] Care Team Providers Name Role Phone Issac Donahue DO Primary Care Provider Encounter Details Date Type Department Care Team Description 02/06/2011 Hospital Encounter XRay at [facility] S/P TKR (total knee [address] [place] [address] Dr replacement) [place] [address] Social History Tobacco Use Types Packs/Day [...] Visit Dermatology Armaan Jones MD [facility] ER DR GONZALEZ GARCAI-DERMAT [place], [place] [address] (Wo rk) documented as of this encounter Procedures Procedure Name Priority Date/Time Associated Comments Diagnosis XR KNEE DIAGNOSTIC 1 Routine 02/06/2011 7:23 AM S/P TKR (total knee Results for this OR 2 VIEW EDT replacement) procedure are i n the results section. documented in this encounter Results XR knee diagnostic 1 [...] Diagnoses Diagnosis S/P TKR (total knee replacement) Knee joint replacement by other means documented in this encounter Care Teams Nuclear Supervising Operator Relationship Specialty Start Date End Date Issac Donahue DO PCP - General 02/06/[address] [place] [address] documented as of this encounter
--- OUTSIDE RECORDS SUMMARY | 2022-02-03 01:07 | XMS_ITS | Encounter Summary ---
:1950 Author Organization [facility] [place] [address] Care Team Providers Name Role Phone Issac Donahue DO Primary Care Provider Reason for Visit Reason Comments Aftercare Of Tjr R TKA DOS 07/12/2007 Encounter Details Date Type Department Care Team Description 02/06/2011 Follow-Up Orthopaedics at [facility] Gaston Swain, Knee joint replacement [facility] Savannah [place] [address] [facility] (Primary Dx) [phone] ORTHOPAEDIC SURGERY [place], [place] [address] Social History Tobacco Use Types Packs/Day Years Used Date Never Smoker Smokeless Tobacco: Never Used Alcohol Use Standard Drinks/Week Comments No 0 (1 standard drink = 0.6 oz pure alcoho l) Sex Assigned at Date Recorded Not on file documented as of this encounter Last Filed Vital Signs Vital Sign Reading Time Taken Comments Blood Pressure 137/77 02/06/2011 8:10 AM EDT Pulse 64 02/06/2011 8:10 AM EDT Temperature - - Respiratory Rate - - Oxygen Saturation - - Inhaled Oxygen Concentration - - Weight 107.2 kg (236 lb 4.8 oz) 02/06/2011 8:10 AM EDT Height 172.7 cm (5' 8) 02/06/2011 8:10 AM EDT Body Mass Index 35.93 02/06/2011 8:10 AM EDT documented in this encounter Patient Instructions Patient InstructionsBelkys Rosario, TREASURY CONSULTANT - 02/06/2011 8:14 AM EDT Welcome to MyRefers, your secure online access to your electronic medical record at [facility]. Using MyRefers you will be able to send messages to your providers, view your test results, renew prescriptions, schedule appointments, and much more. Follow these instructions to enter your personal MyRefers account for the first time: 1. Start your internet browser. Go to [email or web address] and click on the MyRefers link. 2. Click SIGN UP NOW to go to the NEW MEMBER SIGN UP page. 3. Enter your MyRefers Access Code exactly as it appears below. (You will not need this access code after you have completed the sign-up process.) ?? Your MyRefers Access Code: [email or web address] ?? Expires: 03/23/11 08:14 AM ?? IMPORTANT: This Access Code will on the above mentioned date. If you do not sign up beforethis date, you will need to request a new Access Code number. 4. Enter your Date of (mm/dd/yyyy) and zip code click SUBMIT to go to the next page. 5. Create a MyRefers identification (ID). This will be your MyRefers login ID and cannot be changed, so think of one that is secure and easy to remember. 6. Create a password which you can change at any time. Your password must contain six (6) letters and two (2) numbers. 7. Enter your Password Reset Question and Answer. This will be used if you forget your password. 8. Enter your e-mail address. This is used to let you know when new information is available in MyRefers. 9. Click SIGN UP to complete the process. You can now view your electronic medical record. If you have any questions about MyRefers or your Access Code, please call for [place], for [place] or for [place]. If you need technical support, please e-mail [email or web address]. Remember, myD-H is NOT for urgent needs! Always dial 911 for medical emergencies. documented in this encounter Progress Notes Gaston Swain MD - 02/06/2011 8:16 AM EDT In the presence of Dr. Swain, Katiuska Rebolledo, MSN, RN. ONC is documenting in this note as a scribe: Patient Name: Asia Villarreal Jr. : 1950 MR#: [id number] Case Date: 06/16/07 TOTAL KNEE ARTHROPLASTY /RIGHT/ANTIBIOTIC CEMENT/STAB.ROTATING PLATFORM Surgeon: Denisse Swain Procedure: right total knee replacement HPI: Asia Villarreal Jr. is a very pleasant 60 y.o. year-old male who presents for a three year follow-up of the above procedure. The patient has been doing very well and his pain is markedly improved over preoperative status. He states his knee is 98% No fevers, chills, nausea, vomiting, or symptomsof infection. Asia has been ambulating without difficulty. He states he continues to make nice gains, and is appreciating his improved performance. He is active in hunting. Work has been very stressful for him as his boss has medical issues and theresponsibility falls on him. Physical Exam: Well-appearing male in no acute distress. Alert and Oriented x 3 and answers all questions appropriately. The incision is well healed, with no signs of infection. Post Op Right Knee Exam: Gait Abnormality: Normal Knee ROM: Extension:0 Flexion: 110 Alignment: 0-4 degrees Neutral Stability: A/P Translation <5mm. Varus <5mm Valgus <5mm Extension La degrees or less Patella Tracking: Normal Pulses Palpable: Right PT: Yes Right DP:Yes Motor/Sensory: Distal Motor: Normal Distal Sensory: Normal X-RAYS: X-rays show a well-placed right TKA prosthesis with no evidence of fracture or loosening. ASSESSMENT/PLAN: Three years S/P Right TKA and doing well. He will continue to work on strengtheningby getting out and walking. , and we will see him back in 2 years for repeat examination. X-rays will be needed at that time. We again discussed the appropriate precautions surrounding dental prophylaxis. He understands that he needs to call the office for a prescription prior to any dental work for the lifetime of the joint replacement. We also discussed maintaining good foot care and giving prompt attention to any source of infection throughout the body including foot ulcers and urinary tract infections. I have personally evaluated the patient and agree with the above note as scribed by Katiuska Rebolledo,MSN, RN. ONC documented in this encounter Plan of Treatment Upcoming Encounters Date Type Specialty Care Team Description 02/15/2022 Office Visit Dermatology Armaan Jones MD [facility] DR GONZALEZ GARCIA[address] [place], [place] [address] (Wo rk) documented as of this encounter Visit Diagnoses Diagnosis Knee joint replacement by other means - Primary documented in this encounter Care Teams Core Dropper Relationship Specialty Start Date End Date Issac Donahue DO PCP - General 02/06/[address] [place] [address] documented as of this encounter
--- OUTSIDE RECORDS SUMMARY | 2022-02-03 01:07 | XMS_ITS | Encounter Summary ---
:1950 Author Organization [facility] [address] Care Team Providers Name Role Phone GodfreyIssac Primary Care Provider Reason for Visit Reason Comments Skin Lesion Encounter Details Date Type Department Care Team Description 12/15/2015 Office Visit Dermatology at [facility] (actinic Jude Nolasco MD keratosis) [address] [place] [address] [facility]-DERMATOLOGY [place] [address] Social History Tobacco Use Types Packs/Day Years Used Date Never Smoker Smokeless Tobacco: Never Used Alcohol Use Standard Drinks/Week Comments No 0 (1 standard drink = 0.6 oz pure alcoho l) Sex Assigned at Date Recorded Not on file documented as of this encounter Progress Notes Darryn Lange MD - 12/15/2015 8:15 AM EDT DERMATOLOGY ESTABLISHED PATIENT CLINIC NOTE Date of service: 12/15/2015 Name: Asia Villarreal Jr. Age: 65 y.o. Sex: male : 1950 Provider: Darryn Lange MD CC: Actinic Keratosis HPI Asia Villarreal Jr. is a 65 y.o. year old male with a history of actinic keratosis on right antihelix, here for LN treatment as he wanted to defer until after his vacation. He and his just back from a 4000 mile motorcycle trip through [facility]. SKIN HISTORY: Per patient: Multiple lesions frozen - possible AKs. FAMILY SKIN HISTORY: - Sister - BCC SOCIAL HISTORY: Occupation: Construction ADR: Allergies Allergen Reactions ??? Amoxicillin Trihydrate Nausea And Vomiting MEDS: Current Outpatient Prescriptions Medication Sig Dispense Refill ??? clonazePAM (KLONOPIN) [...] complaints EXAM General: NAD, pleasant, cooperative Skin: Focal exam of the right ear was performed. Significant skin findings: A. Actinic keratosis on the right antihelix (1) right helical rim (1) ASSESSMENT/PLAN: A. Actinic Keratosis - I discussed this condition with the patient and explored therapeutic options.I recommended this be treated with LN2, patient is in agreement to this treatment plan. Instructed to call if areas do not resolve as expected or if problems arise. If lesions fail to resolve, further work-up may be needed. Procedure Note: Procedure: Destruction of lesion(s) with cryotherapy. Number: 2 Location: as above Discussed procedure and expectations including risks (including risk of hypopigmentation) and benefits. Verbal consent obtained. There were no complications; the patient tolerated the procedure well. Post-procedure expectations and wound care were reviewed. RTC in the spring, sooner if needed. Reminder placed in scheduling system. Instructed to call if problems arise. Note initiated by JOVANA HODGES, Clinical Scribe has performed the documentation for this encounter in the presence of and acting as a scribe for Dr. Lange. I performed the above scribed service and agree with the accuracy of the documentation in this encounter. Darryn Lange MD Section of Dermatology [facility] documented in this encounter Plan of Treatment Upcoming Encounters Date Type Specialty Care Team Description 02/15/2022 Office Visit Dermatology Armaan Jones MD [facility] ER DR GONZALEZ GARCIA[place] [place], [place] [address] (Wo rk) documented as of this encounter Visit Diagnoses Diagnosis AK (actinic keratosis) Actinic keratosis documented in this encounter Care Teams Auto Damage Insurance Appraiser Relationship Specialty Start Date End Date Issac Donahue DO PCP - General 02/06/[address] [place] [address] documented as of this encounter
--- OUTSIDE RECORDS SUMMARY | 2022-02-03 01:07 | XMS_ITS | Encounter Summary ---
:1950 Author Organization [facility] [place] [address] Care Team Providers Name Role Phone Godfrey Issac FOX Primary Care Provider Reason for Visit Reason Comments Skin Lesion Encounter Details Date Type Department Care Team Description 04/17[facility]2018 [facility]asm [facility] uncertain behavior; Jude TAYLOR [place] (actinic keratosis) [address] [place] [address] [facility]DER[facility] [place], [place] [address] Social History Tobacco Use Types Packs/Day Years Used Date Never Smoker Smokeless Tobacco: Never Used Alcohol Use Standard Drinks/Week Comments No 0 (1 standard drink = 0.6 oz pure alcoho l) Sex Assigned at Date Recorded Not on file documented as of this encounter Patient Instructions Patient InstructionsLizzie, Teresa Schmidt - 04/17/2018 10:00 AM EST ABOUT YOUR TREATMENTS Your Treatment today: Skin biopsy by shave technique You had a biopsy of your skin (removal of a small piece of tissue for examination under microscope).You had a shave biopsy and do not have sutures. Location of your biopsy: right posterior arm Keep in mind the location of your biopsy site in case further treatment is necessary. Wound care Instructions: 1. Keep wound dry and covered for 24 hours then clean area with soap and water. 2. Pat dry completely 3. Cover with Vaseline and a new bandage daily, do this everyday until the wound is healed Please call [phone] if you have questions or concerns. * Please allow one or two weeks for the biopsy results to return. *Based on your biopsy results we will either call you or send you a letter with the results. *If in two weeks, you have not heard from us, please feel free to call and request your biopsy results. documented in this encounter Progress Notes Deirdre Du MD - 04/17/2018 10:00 AM EST Images from the original note were not included. DERMATOLOGY ESTABLISHED PATIENT CLINIC NOTE Date of service: 04/17/2018 Asia Villarreal Jr. : 1950 Provider: Deirdre Du MD Chief Complaint Patient presents with ??? Skin Lesion SKIN HISTORY: Per patient: Multiple lesions frozen - possible AKs. ?? FAMILY SKIN HISTORY: - Sister - BCC ?? SOCIAL HISTORY: Occupation: Construction PATIENT PREFERENCES Preferred name: Asia Preferred contact method with results: Cell Phone Detailed message including biopsy results okay?: Yes Are there any other people with whom we may discuss your care?: No HPI Asia Villarreal Jr. is a 67 y.o. year old male. Here today for evaluation of spot on right ear. Notesthis area was treated about 2 years ago with LN2. Denies itching and bleeding. Notes ocassional tenderness, especially when wearing a helmet while motorcycling. Also notes a spot near right elbow. Notes occasional itchiness and tenderness. Denies bleeding. States it has been present for several years. ADR: Allergies Allergen Reactions ??? Amoxicillin Trihydrate [...] focused examination was performed to the right ear and right posterior arm. Significant skin findings: A. Right posterior arm: 1.5cm well-demarcated, bright red, plaque with slight scale [Specimen A, Figure 1] Figure 1. A right posterior arm Photo taken and charted with patient consent B. Right ear x 4: 0.2-0.3cm scaly irregular pink papules [Total:4] ASSESSMENT/PLAN: A. BCC vs. SCC vs. ISK - Recommended a skin biopsy to confirm/clarify the nature of the skin lesion. After discussion of potential risks (scarring, bleeding, infection) and recurrence, patient agreed to proceed. - No known allergy to lidocaine or epinephrine Procedure: Skin biopsy by shave technique Location: right posterior arm Time: 10:04 AM Discussed indications for procedure and expectations including risks and benefits. Verbal consent obtained. Skin prep with alcohol. Local anesthesia with 1% xylocaine, 1/100,000 epinephrine. A sample of the lesion was removed by shave technique to the level of the dermis and submitted to Pathology. Hem ostasis obtained (AlCl and/or electrocautery). There were no complications; the pt. tolerated the procedure well. The wound was dressed. Post-procedure expectations, wound care and activity restrictions were reviewed. Follow-up based on pathology results. B. Actinic Keratosis -Discussed at length the natural history and etiology of actinic keratoses. -Discussed premalignent potential of these lesions. -Discussed treatment options for actinic keratoses including cryotherapy versus chemical treatment such as 5-FU or PDT. -Combined decision to treat discrete actinic keratosis with LN2 in office today; patient will consider 5-FU in the future/ at his convenience - Patient instructed to return to clinic for re-evaluation if lesion does not resolve with this treatment; as expected. Procedure Note: Procedure: Destruction of lesions with cryotherapy. Number: 4 Location: as above Discussed procedure and expectations including risks (including risk of hypopigmentation) and benefits. Verbal consent obtained. Frozen with LN2, 15-30 second thaw time, TWICE. There were no complications; the patient tolerated the procedure well. Post-procedure expectations and wound care were reviewed. FOLLOW UP: Based on pathology results; otherwise PRN. Patient instructed to call with any questions or concerns. I am documenting this encounter acting as the scribe for and in the presence of Dr. Du.: Ramandeep Trivedi RN and Teresa Samuel I performed the above scribed service and agree with the accuracy of the documentation in this encounter. Deirdre Du MD Section of Dermatology [facility] documented in this encounter Plan of Treatment Upcoming Encounters Date Type Specialty Care Team Description 02/15/2022 Office Visit Dermatology Armaan Jones MD [facility] [address] GARC[address] [place], [place] [address] (Wo rk) documented as of this encounter Procedures Procedure Name Priority Date/Time Associated Diagnosis Comme nts SPECIMEN TO Routine 04/17/2018 10:19 AM Neoplasm of Results for this PATHOLOGY EST uncertain behavior procedure are in the results section. SURGICAL PATHOLOGY Routine 04/17/2018 10:04 AM Re sults for this REPORT EST procedure are i n the results section. documented in this encounter Results Specimen to Pathology (04/17/2018 10:19 AM EST) Specimen Anatomical Collection Method Collection Time Receive d Time (Source) Location / / Volume Laterality AP Specimen 04/17/2018 10:19 04/17/2018 AM EST 12:47 PM EST Narrative [facility] - 04/17/2018 12:47 PM EST Specimen requisition ordered. ??Separate Pathology report to follow Resulting Agency Comment Spec In Lab Deirdre Du MD PATHOLOGY/CYTOLOGY ORDERABLE S Performing Organization Address City/[facility]/[place] [address] [address] [address] Surgical Pathology Report (04/17/2018 10:04 AM EST) Component Value Ref Test Analysis Performed At [facility] gist Range Method Time Signature Surgical [id number] ? Location: [facility] Report The signing pathologist has (i) examined the relevant preparation(s) for the [facility] specimen(s) and (ii) rendered or confirmed the diagnosis(es) . HOSPITAL LABORATORY . 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 of Pathology, [place], [place] CLINICAL INFORMATION Specimen Submitted: A - Skin, Right Posterior Arm, Shave Biopsy, (1) Clinical History and Diagnosis: 1.5 cm well-demarcated bright red plaque with sl ight scale; BCC vs SCC vs ISK SPECIMEN PROCESSING A - Labeled/Fixative: Right posterior arm, formalin. Quantity/Size: ??Single, 0.6 x 0.5 x 0.1 cm. Tissue Description: Shave of scaly skin. Sections/Processing: Inked, bisected and entirely submitted in 1 cassette labeled A1. ??lizbeth Specimen (Source) Anatomical Collection Method Collection Time Re ceived Time Location / / Volume Laterality 04/17/2018 10:04 AM EST Deirdre Du MD PATHOLOGY/CYTOLOGY ORDERABLE S Performing Organization Address City/State/[place] [address] documented in this encounter Visit Diagnoses Diagnosis Neoplasm of uncertain behavior Neoplasm of uncertain behavior, site uns pecified [place] (actinic keratosis) Actinic keratosis documented in this encounter Care Teams Steam Conditioning Operator Relationship Specialty Start Date End Date Issac Donahue DO PCP - General 02/06/[address] [place] [address] documented as of this encounter
--- OUTSIDE RECORDS SUMMARY | 2022-02-03 01:07 | XMS_ITS | Encounter Summary ---
:1950 Author Organization [facility] [place] [address] Care Team Providers Name Role Phone Godfrey Issac FOX Primary Care Provider Reason for Visit Reason Comments Skin Lesion Encounter Details Date Type Department Care Team Description 02/23/2020 Office Visit Dermatology at [facility] Deirdre Du [place] (actinic Road MD keratosis) [address] [place] [address] [facility] [place], [place] [address] Social History Tobacco Use Types Packs/Day Years Used Date Never Smoker Smokeless Tobacco: Never Used Alcohol Use Standard Drinks/Week Comments No 0 (1 standard drink = 0.6 oz pure alcoho l) Sex Assigned at Date Recorded Not on file documented as of this encounter Patient Instructions Patient InstructionsLeila Hudson CCMA - 02/23/2020 5:00 PM EST Actinic Keratoses Diagnosis: You have been diagnosed [...] at least 30. Contact information: On weekdays (8am to 5pm), please call the clinic at [phone]. After 5pm, and on weekends and holidays, please call the hospital at [phone] and ask for the Lead Neurodiagnostic Technologist Anvil Seating Press Operator. documented in this encounter Progress Notes Deirdre Du MD - 02/23/2020 5:00 PM EST DERMATOLOGY ESTABLISHED PATIENT CLINIC NOTE Date of Service: 02/23/2020 Asia Villarreal : 1950 Provider: Deirdre Du MD Chief Complaint Patient presents with ??? Skin Lesion SKIN HX Personal History Y/N Date, location, treatment Melanoma No DN No SCC Yes 04/17/18: Right posterior arm, SCCis (ED&C 04/22/18) BCC No AK or field cancerization therapy Yes LN2 Immunosuppression or malignancy No Blistering sunburns or tanning bed use No + Sun exposure (career working outdoors for most of life) Other (i.e., eczema, psoriasis) No Relevant social history Occupation: [email or web address] Hobbies: Enjoys riding motorcycles Family History Y/N Parents, siblings, children Melanoma No NMSC Yes Sister - BCC Other No Patient Preferences Preferred name Asia Preferred contact method [] Home [x] Cell [] myD-H [] Other: Permission to leave detailed message including results [x] Yes [] No Permission to discuss care with (Ashly) Preferred pharmacy [facility] in [place], [place] Procedure Screening Questions Y/N Allergies to lidocaine or epinephrine No Blood thinners Yes: ASA 81 mg Pacemaker or defibrillator No HPI Asia Villarreal Jr. is a 69 y.o. male, established patient last seen by me on 01/23/2019. Here today for a focused skin examination with the following concerns: - Asymptomatic scaly lesions on the left lateral eyebrow and right voodoo; no treatments tried. Last FSE: None (focused exams only) - PCP monitors skin MEDS Current Outpatient Medications Medication Sig Dispense Refill [...] No current facility-administered medications for this visit. ADR Allergies Allergen Reactions ??? Amoxicillin Trihydrate Nausea And Vomiting ROS General: Feeling well Skin: Denies other skin complaints EXAM General: NAD, pleasant, cooperative Skin: A focused skin examination of the left lateral eyebrow and right voodoo, significant for??the following: Significant Skin Findings: A. Left lateral eyebrow x 1, right voodoo x 2: 0.2-0.3 cm scaly, irregular, pink papules. [Total: 3] ASSESSMENT/PLAN A. Actinic Keratoses - Explained etiology, natural history and premalignant potential of these lesions. - Discussed treatment with cryotherapy, including the risks and benefits. - Patient elects to proceed with cryotherapy today. Procedure: Destruction of lesions with cryotherapy (LN2). Locations: As noted above. Number: 3 Discussed procedure and expectations, including risks (especially hypopigmentation) and benefits. Verbal consent obtained. Frozen with LN2, 15-30 second thaw time, twice. There were no complications; patient tolerated the procedure well. Post-procedure expectations and wound care reviewed. - Instructed patient to return to clinic for re-evaluation if lesions do not resolve with this treatment. Follow Up: PRN (patient prefers to have PCP check his skin) Note initiated by: MIREILLE Lou I am documenting this encounter acting as the scribe for and in the presence of Dr. Du: Teresa Samuel I performed the above scribed service and agree with the accuracy of the documentation in this encounter. Deirdre Du MD Department of Dermatology [facility] cc: Issac Donahue DO documented in this encounter Plan of Treatment Upcoming Encounters Date Type Specialty Care Team Description 02/15/2022 Office Visit Dermatology Armaan Jones MD [facility] [address] [facility] [place], [place] [address] (Wo rk) documented as of this encounter Visit Diagnoses Diagnosis AK (actinic keratosis) Actinic keratosis documented in this encounter Care Teams Powder Room Attendant Relationship Specialty Start Date End Date Issac Donahue DO PCP - General 02/06/[address] [place] [address] [address] [place] [address] documented as of this encounter
--- OUTSIDE RECORDS SUMMARY | 2022-02-03 01:08 | XMS_ITS | Encounter Summary ---
:1950 Demographics Home Phone Preferred Language Unknown Marital Status Unknown Restorationism Affiliation Unknown Race Unknown Ethnic Group Unknown Author Organization [facility] Address [address] [place] [address] Care Team Providers Name Role Phone Unavailable Primary Care Provider Unavailable Encounter Details Date Type Department Care Team Description 04/11/2019 Lab Requisition [facility] Unknown, Provider, Pathology & Laboratory [facility] [address] [place] [address] [place] [address] Social History Tobacco Use Types Packs/Day Years Used Date Never Assessed Sex Assigned at Date Recorded Not on file documented as of this encounter Plan of Treatment Not on filedocumented as of this encounter Procedures Procedure Name Priority Date/Time Associated Comments Diagnosis PSA TOTAL, Routine 04/11/2019 10:29 Results for this DIAGNOSTIC EST procedure are i n the results section. documented in this encounter Results PSA TOTAL, DIAGNOSTIC (04/11/2019 10:29 EST) Pathologist Sig nature PSA 1.5 0.0 - 4.5 ng/mL [facility] Specimen Blood - Venous blood (substance) Narrative [facility] - 04/14/2019 11:31 EST NOTE: Serum PSA concentration should not be in terpreted as absolute evidence for the presence or absence of malignant disease. Assayed on Siemens ADVIA Centaur XPT usi ng chemiluminescent technology.??Values obtained by using different assay methods cannot be used interchangeably. Performing Organization Address City/State/ZIP Code Phon e Number [facility] [address] [place] [address] SERVICES documented in this encounter Visit Diagnoses Not on filedocumented in this encounter
--- OUTSIDE RECORDS SUMMARY | 2022-02-03 01:08 | XMS_ITS | Clinical Summary ---
:1950 Demographics Home Phone Preferred Language Unknown Marital Status Unknown Jewish Affiliation Unknown Race Unknown Ethnic Group Unknown Author Organization [facility] Address [address] [place] [id number] Care Team Providers Name Role Phone Unavailable Primary Care Provider Unavailable Social History Tobacco Use Types Packs/Day Years Used Date Never Assessed Sex Assigned at Date Recorded Not on file Plan of Treatment Health Maintenance Due Date Last Done Comments Fall Risk Screening 2017
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
== END ==
PROVIDERS: PCP Nurse Practitioner Family; Visit Provider Nurse Practitioner Family
DX: N20.0 Calculus of kidney (principal); R10.9 Unspecified abdominal pain; K80.20 Calculus of gallbladder without cholecystitis without obstruction
CPT/HCPCS: 74176

== ENCOUNTER 2022-03-02 03:20 | Outpatient (CLI) | payer MEDICARE, SELFPAY ==
[2022-03-02 18:12] LABS: PSA, Screening 1.8 ng/mL (<=4.5)
== END 2022-03-02 03:21 | disposition home or self-care (01) ==
LOC: LBO 03:20
PROVIDERS: PCP Nurse Practitioner Family; Visit Provider Nurse Practitioner Family
DX: N40.0 Benign prostatic hyperplasia without lower urinary tract symptoms (principal); Z12.5 Encounter for screening for malignant neoplasm of prostate
CPT/HCPCS: 36415; 84153

== ENCOUNTER 2023-01-04 03:37 | Outpatient (CLI) | payer MEDICARE, SELFPAY ==
[2023-01-04 10:41] LABS: CREATININE 1.2 mg/dL (0.70-1.30); Calculated LDL 64 mg/dL (<100); Cholesterol 143 mg/dL (<200); Estimated GFR 65.06 (mL/min/1.73m2); HDL Cholesterol 61 mg/dL (40-60); Potassium 3.6 mmol/L (3.5-5.1); Triglyceride 94 mg/dL (<150)
[2023-01-04 12:20] LABS: Hemoglobin A1C 6.2 % (<5.7)
[2023-01-04 19:56] LABS: PSA, Screening 2.2 ng/mL (<=6.5)
== END 2023-01-04 03:38 | disposition home or self-care (01) ==
LOC: LBO 03:38
PROVIDERS: PCP Nurse Practitioner Family; Visit Provider Nurse Practitioner Family
DX: E78.5 Hyperlipidemia, unspecified (principal); I10 Essential (primary) hypertension; E11.9 Type 2 diabetes mellitus without complications; N40.0 Benign prostatic hyperplasia without lower urinary tract symptoms; Z12.5 Encounter for screening for malignant neoplasm of prostate
CPT/HCPCS: 36415; 80061; 84153; 82565; 83036; 84132

== ENCOUNTER 2023-11-15 23:53 | Emergency (ER) | payer MEDICARE, SELFPAY ==
[2023-11-15 23:56] VITALS: BP 202/76; PULSE 79; RESP 16; TEMP 36.6; O2SAT 94
[2023-11-16] VITALS (24 sets, daily range): BP systolic 173–182; BP diastolic 69–94; PULSE 65–82; RESP 10–33; O2SAT 95–98
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
[2023-11-16 00:14] LABS: Bilirubin Negative (Negative); Blood Trace-intact (Negative); Clarity Clear (Clear); Glucose Negative (Negative); Ketones Negative (Negative); Leukocyte Esterase Negative (Negative); Nitrite Negative (Negative); Specific Gravity >= 1.030 (1.005-1.025); Urobilinogen 0.2 mg/dL (Up to 0.2); pH 5.5 (5-8)
[2023-11-16] MEDS: MORPHine 4 MG/ML SYR IVP ×2 (00:15→03:22)
[2023-11-16] MEDS: Lactated Ringers 1,000 ML 1000 ML IV (00:15)
[2023-11-16 00:17] LABS: Bacteria Rare HPF (Negative); C & S Indicated? No; Casts Negative LPF (Negative); Crystals Negative HPF (Negative); Epithelial Cells Rare HPF (Negative); Mucus Negative (Negative); WBC Negative HPF (0-5)
[2023-11-16 00:26] LABS: Abs Immature Grans 0.07 10^3/uL (0.0-0.06); Basophils % 0.4 %; Eosinophils % 0.7 %; HCT 41.7 % (40.0-50.0); HGB 14.7 g/dL (13.5-17.5); Immature Grans % 0.5 %; Lymphocytes % 12.2 %; MCH 33.3 pg (27.0-33.0); MCHC 35.3 % (32.0-36.0); MCV 94 fL (80-95); MPV 11.2 fL (8.0-11.0); Monocytes % 4.3 %; Neutrophils % 81.9 %; Platelet Count 169 10^3/uL (130-400); RBC 4.42 10^6/uL (4.36-5.78); RDW 12.4 % (11.8-14.1); RDW-SD 43.7 fL; WBC 13.97 10^3/uL (4.4-10.8)
[2023-11-16 00:29] LABS: Absolute Basophil Count 0.06 10^3/uL (0.0-0.2); Absolute Neutrophil Count 11.44 10^3/uL (1.2-6.7)
[2023-11-16 00:38] LABS: Anion Gap 11.6 mmol/L (3-11); BUN 23 mg/dL (7-18); CO2 26.4 mmol/L (21.0-32.0); CREATININE 1.4 mg/dL (0.70-1.30); Chloride 101 mmol/L (98-107); Estimated GFR 53.74 (mL/min/1.73m2); Glucose 190 mg/dL (74-106); Potassium 4.3 mmol/L (3.5-5.1); Sodium 139 mmol/L (136-145)
--- NOTE | 2023-11-16 03:51 | DI.VRAD_ITS ---
PROCEDURE INFORMATION: Exam: CT Abdomen And Pelvis Without Contrast Exam date and time: 11/16/2023 12:50 AM Age: 73 years old Clinical indication: Other: Right back/flank pain; HX of stones TECHNIQUE: Imaging protocol: Computed tomography of the abdomen and pelvis without contrast. COMPARISON: CT RENAL COLIC WO 03/02/2022 10:07 FINDINGS: Liver: Normal. No mass. Gallbladder and biliary ducts: Cholelithiasis. No biliary ductal dilatation. Pancreas: Normal. No ductal dilation. Spleen: Normal. No splenomegaly. Adrenal glands: Normal. No mass. Kidneys and ureters: 2 mm calculus at the right ureterovesical junction with right pelviectasis. There is chronic perinephric stranding bilaterally. There are nonobstructing intrarenal calculi bilaterally. There is a 1.5 cm probable cyst of the right kidney. Stomach and bowel: No evidence of bowel obstruction. Appendix: Normal appendix. Intraperitoneal space: Unremarkable. No free air. No significant fluid collection. Vasculature: Unremarkable. No abdominal aortic aneurysm. Lymph nodes: Unremarkable. No enlarged lymph nodes. Urinary bladder: Unremarkable as visualized. Reproductive: Enlarged prostate gland. Bones/joints: Compression fracture of the superior endplate of L2 with mild loss of vertebral body height. This is new since the prior examination but not clearly acute. Degenerative disc disease at L4-L5. Soft tissues: Left inguinal hernia containing fat. Metallic foci in the subcutaneous soft tissues of the lower back. IMPRESSION: 1. 2 mm calculus at the right UVJ with minimal right obstructive uropathy. 2. Bilateral nephrolithiasis. 3. Cholelithiasis. 4. Indeterminate fracture of L2 as above. Correlate clinically. Consider follow-up MRI if indicated. Dictated and Authenticated by: Zach Cohen MD. Ordering:BRY Paulino MD
[2023-11-16] MEDS: Tamsulosin 0.4 MG CAPCR PO (04:17)
== END 2023-11-16 04:24 | disposition home or self-care (01) ==
PROVIDERS: Emergency Provider Emergency Medicine; PCP Nurse Practitioner Family
DX: R10.31 Right lower quadrant pain (principal); N20.1 Calculus of ureter; Z87.442 Personal history of urinary calculi
CPT/HCPCS: 36415; 80048; 96361; 96374; 96376; 99284; 74176; 81003; 81015; 85025; 99283; J2270

== ENCOUNTER 2024-01-08 02:34 | Outpatient (CLI) | payer MEDICARE, SELFPAY ==
[2024-01-08 10:57] LABS: Calculated LDL 68 mg/dL (<100); Cholesterol 160 mg/dL (<200); HDL Cholesterol 64 mg/dL (40-60); Triglyceride 144 mg/dL (<150)
== END 2024-01-08 02:35 | disposition home or self-care (01) ==
LOC: LBO 02:34
PROVIDERS: PCP Nurse Practitioner Family; Visit Provider Nurse Practitioner Family
DX: Z13.6 Encounter for screening for cardiovascular disorders (principal); Z12.5 Encounter for screening for malignant neoplasm of prostate
CPT/HCPCS: 36415; 80061; 84153

== ENCOUNTER 2024-09-30 03:36 | Outpatient (CLI) | payer MEDICARE, SELFPAY ==
[2024-10-01 10:54] LABS: Lyme Ab w Rflx to Lyme Confirm Negative (Negative)
[2024-10-03 12:37] LABS: Anaplasma phagocytophilum Negative (Negative); B. miyamotoi PCR Negative (Negative); Babesia divergens/MO-1 Negative (Negative); Babesia duncani Negative (Negative); Babesia microti Negative (Negative); Ehrlichia chaffeensis Negative (Negative); Ehrlichia ewingii/canis Negative (Negative); Ehrlichia muris eauclairensis Negative (Negative)
== END 2024-09-30 03:37 | disposition home or self-care (01) ==
LOC: LBO 03:37
PROVIDERS: PCP Nurse Practitioner Family; Visit Provider Nurse Practitioner Family
DX: T14.90XA Injury, unspecified, initial encounter (principal); W57.XXXA Bitten or stung by nonvenomous insect and other nonvenomous arthropods, initial encounter
CPT/HCPCS: 36415; 87798; 86618

== ENCOUNTER 2025-01-16 00:22 | Outpatient (CLI) | payer MEDICARE, SELFPAY ==
[2025-01-16 14:26] LABS: Hemoglobin A1C 6.6 % (<5.7)
[2025-01-16 14:27] LABS: Anion Gap 8.4 mmol/L (3-11); BUN 24 mg/dL (7-18); CO2 30.6 mmol/L (21.0-32.0); Calcium 9.1 mg/dL (8.5-10.1); Calculated LDL 60 mg/dL (<100); Chloride 104 mmol/L (98-107); Cholesterol 157 mg/dL (<200); Estimated GFR 71.32 (mL/min/1.73m2); Glucose 173 mg/dL (74-106); HDL Cholesterol 51 mg/dL (>or=40); Potassium 4.2 mmol/L (3.5-5.1); Sodium 143 mmol/L (136-145); Triglyceride 233 mg/dL (<150)
[2025-01-16 22:04] LABS: PSA, Screening 2.6 ng/mL (<=6.5)
== END 2025-01-16 00:23 | disposition home or self-care (01) ==
LOC: LOS 00:22
PROVIDERS: PCP Nurse Practitioner Family; Visit Provider Nurse Practitioner Family
DX: Z13.1 Encounter for screening for diabetes mellitus (principal); Z13.6 Encounter for screening for cardiovascular disorders; Z12.5 Encounter for screening for malignant neoplasm of prostate
CPT/HCPCS: 36415; 80048; 80061; 84153; 83036

== ENCOUNTER → 2025-02-05 07:58 | Outpatient (BNVA) | payer MEDICARE, SELFPAY | PROVIDERS: PCP Nurse Practitioner Family; Referring Provider Nurse Practitioner Family; Visit Provider Psychiatry & Neurology Neurology | DX: G56.01 Carpal tunnel syndrome, right upper limb (principal); G56.21 Lesion of ulnar nerve, right upper limb; I10 Essential (primary) hypertension | CPT/HCPCS: 95908 ==

== ENCOUNTER → 2025-03-16 10:45 | Outpatient (BNVA) | payer MEDICARE, SELFPAY | PROVIDERS: PCP Nurse Practitioner Family; Referring Provider Nurse Practitioner Family; Visit Provider Student in an Organized Health Care Education/Training Program | DX: G56.01 Carpal tunnel syndrome, right upper limb (principal); G56.21 Lesion of ulnar nerve, right upper limb; M72.0 Palmar fascial fibromatosis [Dupuytren] | CPT/HCPCS: 99214 ==

== ENCOUNTER 2025-04-14 12:44 | Day surgery (SDC) | payer MEDICARE, SELFPAY ==
[2025-04-14 13:40] VITALS: BP 156/84; PULSE 82; RESP 14; TEMP 36.9; O2SAT 96
[2025-04-14] MEDS: Cephalexin 500 MG CAP 1000 MG PO (13:48)
--- NOTE | 2025-04-14 14:55 | PDOC.DSDIS_ITS ---
Date of service: 04/14/25 Discharge Plan Disposition Patient Disposition: Home Condition: Good Discharge Details Reason For Visit: Right carpal tunnel; Right ring finger Dupuytrens Attending Provider: Laureano Fisher Primary Care Provider: Colton Ahumada Home Meds and New Rx's Prescriptions: New hydrocodone-acetaminophen 5-325 mg tablet 1 tab PO Q6H PRN (Reason: severe pain) Qty: 4 0RF Rx Instructions: Take one tablet up to every 6 hours as needed for severe postoperative pain Continued cholecalciferol (vitamin D3) 25 mcg (1,000 unit) capsule 50 mcg PO DAILY amlodipine 10 mg tablet 10 mg PO DAILY Qty: 90 4RF atorvastatin [Lipitor] 40 mg tablet 40 mg PO DAILY Qty: 90 3RF hydrochlorothiazide 25 mg tablet 25 mg PO DAILY Qty: 90 3RF losartan 100 mg tablet 100 mg PO DAILY Qty: 90 3RF magnesium chloride [Mag 64] 64 mg tablet,delayed release (DR/EC) 64 mg PO DAILY Qty: 90 3RF metoprolol tartrate 50 mg tablet 50 mg PO BID Qty: 180 3RF omeprazole 40 mg capsule,delayed release(DR/EC) 40 mg PO DAILY Qty: 90 3RF All Day Allergy (cetirizine) 10 mg capsule 10 mg PO DAILY PRN multivitamin [Daily Multi-Vitamin] 1 EACH tablet 1 ea PO DAILY ibuprofen 800 mg tablet 800 mg PO TID PRN (Reason: pain) Qty: 90 0RF acetaminophen 500 mg tablet 500 mg PO BID PRN Rx Instructions: states this is 250mg tabs, taking 2 (500mg) twice daily for pain/arthritis Discharge Instructions Additional Instructions: Dupuytren's Contracture Discharge Instructions Activity: You may use your fingers for light activity. You should limit any excessive motion or forceful gripping until the sutures have been removed. Dressings: You should keep the initial surgical dressing in place for at least 3 days. You may remove your dressings and get the wound wet after 3 days. You should keep the dressings and the wound clean at all times. You may keep the initial dressing in place until your follow-up but keep the wound covered with l ight gauze until the sutures are removed. Medications: - You should take Tylenol and Ibuprofen around the clock as prescribed or per annual giving director's recommendations. - You have Hydrocodone prescribed for breakthrough pain control. Take only as needed and limit use as much as possible. This may cause constipation. Follow-up: 7-10 days for wound check and suture removal. Stand Alone Forms: Phillip Romero, Emeka Huang (DSU), Portal Information Referrals: Laureano Fisher MD [ [facility] STAFF PHYSICIAN, Orthopaedic Surgical] - 04/24/25 10:00 am Activity:: Elevate Remove Dressings/Wound Care:: 72 hours Shower/Bathe:: 72 hours Diet:: As Tolerated Discharge Orders Discharge Orders: Discharge Order (Routine); Ordered 04/14/25 Ordered By: Anca Landa
[2025-04-14] MEDS: Sodium Bicarbonate 50 MEQ/50 ML VIAL (16:50)
[2025-04-14] MEDS: Lidocaine 1% Multi-Dose W/EPI 1/100,000 50 ML VIAL (16:50)
[2025-04-14 17:05] VITALS: BP 166/78; PULSE 61; RESP 15; TEMP 36.6; O2SAT 96
--- NOTE | 2025-04-14 18:12 | W.PM.OP ---
Operative Note Operative Note PRE-OP DIAGNOSIS: Right Carpal Tunnel Syndrome Dupuytren's Contracture - Right Hand involving Ring Finger POST-OP DIAGNOSIS: same PROCEDURE: Right Partial Palmar Fasciectomy including Ring Finger Right Endoscopic Carpal Tunnel Release SURGEON: Laureano Fisher ANESTHESIA TYPE: Local By Surgeon Refer to Anesthesia Record ESTIMATED BLOOD LOSS: 0 PATHOLOGY: none sent TOURNIQUET TIME: 6 COMPLICATIONS: None Patient was transported to: same day Patient's condition: stable Indications: I have seen Asia in clinic for symptoms of carpal tunnel syndrome. The numbness, tingling, and pain limited function. Clinical exam findings confirmed the diagnosis of carpal tunnel syndrome. Nonoperative measures such as bracing, time, activity modifications had been tried but disability and pain persisted. I discussed carpal tunnel release with the patient. I reviewed the risks of the procedure to include, but not limited to, bleeding, infection, pain, stiffness, incomplete release, damage to nerves or vessels, persistent numbness, recurrence. Despite these risks, the patient elected to proceed. In addition, he has Dupuytren's disease about the right ring finger and palm. He has had this contrcture and nodularity for many years and desires definitive treatment. I reviewed this surgery with him to be performed, these include pain, stiffness, recurrence, damage to nerves and vessels. All of his questions were answered. Findings: There was tightened carpal tunnel. This was dilated and released successfully with the endoscopic with increased space within the tunnel. The antebrachial fascia was released proximally freeing the median nerve at the wrist. Procedure Description: Asia was greeted in the preoperative holding area where the correct side was identified and marked. The consent was reviewed with the patient and signed. The history and physical was updated. All questions were answered. Asia was taken back to the operating room. The patient was placed into the supine position on the operating room table with the right arm on an arm board. A nonsterile tourniquet was placed high onto the arm. All bony prominences were well padded. Prophylactic antibiotics in the form of Cephalexin were administered in DSU. The right arm was then prepped with Chloraprep and draped in a standard fashion with stockinette and extremity drape. A timeout to confirm correct identity, side and site, procedure, allergies, anesthesia, and medical concerns was performed. The surgical sites was marked and anesthetized with approximately 20cc of 1% Lidocaine with Epinephrine, buffered with Sodium Bicarbonate. Attention was first turned to the Dupuytren's. A Haim type incision was made in the palm and extending onto the base of the ring finger. The skin was incised. Deeper dissection was made with a tenotomy scissor and with a knife, elevating the skin off of the underlying cord. The cord was then fully identified. It was transected proximally and then elevated out of the palm and onto the ring finger. Additional bands of the central cord were resected. The finger was now almost able to fully extend. There was also a nodule of the proximal phalanx with a smaller, associated cord. This was resected partial until there was full extension of the finger. The wound was then thoroughly irrigated. The skin was closed with interrupted Nylon 4-0 suture. Then, attention was turned to the carpal tunnel. The limb was exsanguinated with an Esmarch. The skin was incised with a 15 blade, approximately 1cm. The skin only was cut and the deeper tissue was dissected bluntly with a tenotomy scissor, avoiding passing nerve and venous structures. The fascia was penetrated and opened bluntly. A two-prong skin hook was placed under this proximal fascial edge. A series of hamate finders were used to identify and dilate the carpal tunnel. Synovial elevator was used to free synovial attachments to the underside of the transverse carpal ligament. My thumb was kept in the palm to jolly the distal extent of the carpal tunnel and correctly position the hand. The Microaire endoscope was inserted without difficulty and without resistance. Excellent visualization showed horizontally running fibers of the transverse carpal ligament (TCL). The distal extent of the TCL was visualized and the end of the scope palpated with the thumb. The blade was elevated and withdrawn from distal to proximal. The TCL was split into two flaps. The endoscope was reinserted to confirm complete release and any remnant ligament was incised. The scope was withdrawn and the proximal aspect of the carpal tunnel was grossly inspected and appeared release with the median nerve visible. The antebrachial fascia at the level of the wrist was then freed from the overlying skin and then the underlying median nerve with blunt dissection. This was transected longitudinally for about 3cm proximal to the wrist incision. The wound was then irrigated with easy flow of irrigant distally and proximally. The incision was closed with a single 4-0 Nylon suture. The wounds were then dressed with Xeroform, Gauze, Kerlix and Arun. The tourniquet was deflated with the initial dressing and held with some pressure. Blood flow returned easily to all digits with capillary refill less than 2 seconds. The patient tolerated the procedure well and was returned to the Same Day Surgery area in a stable condition suffering no known complication. Date of Procedure: 04/14/25
== END 2025-04-14 17:21 | disposition home or self-care (01) ==
PROVIDERS: PCP Nurse Practitioner Family; Visit Provider Student in an Organized Health Care Education/Training Program
PROC: 01N54ZZ Release Median Nerve, Percutaneous Endoscopic Approach (ICD-10-PCS; CPT 29848; principal; 2025-04-14 15:15)
PROC: (CPT 26045; 2025-04-14 15:15)
DX: G56.01 Carpal tunnel syndrome, right upper limb (principal); M72.0 Palmar fascial fibromatosis [Dupuytren]
CPT/HCPCS: 26123; 29848; J2004